=== PATIENT | male | born 1985 | race Caucasian/White ===

== ENCOUNTER 2016-09-13 09:50 | Emergency (ER) | payer MEDICARE, MEDICAID ==
--- NOTE | 2016-09-13 11:58 | RAD ---
RIGHT ANKLE 3 VIEWS: HISTORY: A 31-year-old male with right ankle pain following a twisting injury. FINDINGS: There is very prominent diffuse soft tissue fullness. There is some extensive ossification within t he Achilles tendon, evidence for either an old Achilles tendon injury or severe tendinopathy. No ev idence for acute ankle fracture. IMPRESSION: Severe generalized soft tissue fullness. No acute fracture or dislocation. Extensive ossification within the Achilles tendon, evidence for Achilles tendinopathy or old Achilles tendon injury. POS: [facility]
== END 2016-09-13 11:00 | disposition home or self-care (01) ==
LOC: MADERS 09:50
DX: S93.401A Sprain of unspecified ligament of right ankle, initial encounter (principal); K21.9 Gastro-esophageal reflux disease without esophagitis; E03.9 Hypothyroidism, unspecified; J45.909 Unspecified asthma, uncomplicated; I48.91 Unspecified atrial fibrillation; X58.XXXA Exposure to other specified factors, initial encounter